=== PATIENT | female | born 1990 | race Caucasian/White ===

== ENCOUNTER 2018-06-26 15:58 | Emergency (ER) | payer BC, MEDICAID ==
[~2018-06-26] VITALS: Ht 180.3 cm; Wt 136.1 kg
[2018-06-26 16:39] LABS: *BILIRUBIN,URIN NEGATIVE (NEGATIVE); *BLOOD, URINE 2+ (NEGATIVE); *CLARITY,URINE CLOUDY (CLEAR); *COLOR,URINE YELLOW (YELLOW); *KETONES,URINE NEGATIVE (NEGATIVE); *UROBILINOGEN,URINE 0.2 E.U./dl (NORMAL); NITRITE, URINE NEGATIVE (NEGATIVE); PH,URINE 5.5 (5.0-8.0); UGLUCOSE NEGATIVE (NEGATIVE)
[2018-06-26 16:40] LABS: *URINE HCG, QUAL NEGATIVE (NEGATIVE)
[2018-06-26 16:48] LABS: LEUKOCYTE ESTERASE ,URINE 2+ (NEGATIVE)
[2018-06-26 16:54] LABS: BACTERIA,URINE MODERATE /HPF (NONE SEEN); RBC,URINE 20-50 /HPF (0-3); SQUAMOUS EPITHELIAL CELL,UR MODERATE /HPF (NONE SEEN); WBC,URINE 80-100 /HPF (0-3)
[2018-06-26] MEDS ORDERED: CEphaleXIN 500 MG CAPSULE PO ONE (17:00)
[2018-06-26] MEDS ORDERED: CEphaleXIN 500 MG CAPSULE ONE (17:11)
[2018-06-26 17:23] VITALS: BP 116/76
== END 2018-06-26 17:27 | disposition home or self-care (01) ==
LOC: ER 15:58
DX: N39.0 Urinary tract infection, site not specified (principal)
CPT/HCPCS: 84703; A4663

== ENCOUNTER 2019-12-11 09:12 | Emergency (ER) | payer BC, MEDICAID ==
[~2019-12-11] VITALS: Ht 180.3 cm; Wt 95.3 kg
--- NOTE | 2019-12-11 09:44 | NUR ---
Dr Araujo at the bedside for MSE.
--- NOTE | 2019-12-11 09:58 | NUR ---
Strep and COVID swab collected per ptotocol and sent to LAB.
--- NOTE | 2019-12-11 11:22 | NUR ---
Patient discharged to home in stable condition. Written and verbal after care instructions given. Patient verbalizes understanding of instructions. Stressed follow up or return to ER for worsening s/s.
[2019-12-11 11:23] VITALS: BP 110/66
== END 2019-12-11 11:23 | disposition home or self-care (01) ==
LOC: ER 09:12
DX: J02.0 Streptococcal pharyngitis (principal); Z20.828 Contact with and (suspected) exposure to other viral communicable diseases
CPT/HCPCS: 36415; 86403; A4663